=== PATIENT | female | born 1940 | race Caucasian/White ===

== ENCOUNTER → 2017-01-03 | Outpatient (CLI) | payer MEDICARE ==
--- NOTE | 2017-01-03 16:43 | US ---
EXAMINATION TYPE: US thyroid st tissue head/neck DATE OF EXAM: 01/03/2017 COMPARISON: NONE CLINICAL HISTORY: 76-year-old female with E04.1 THYROID NODULE. Pt states h/o nodules and on thyroid meds x many years TECHNIQUE: Multiple sonographic images of the thyroid gland are obtained. FINDINGS: GLAND SIZE: Right Lobe: 4.4 x 1.3 x 1.1 cm Overall Parenchyma: heterogenous Left Lobe: 3.3 x 1.0 x 1.2 cm Overall Parenchyma: heterogeneous Isthmus Thickness: 0.2 cm NODULES RIGHT: # of nodules measured on right: 2 1. 0.6 X 0.7 x 0.7 cm isoechoic solid nodule at the mid pole with well-defined margins; This nodul e is wider than tall and shows intranodular vascularity. Prior size: No prior 2. 0.5 X 0.4 x 0.5 cm hypoechoic mixed nodule at the mid pole with well-defined margins; this nodule is wider than tall and shows no intranodular vascularity. This appears cystic with a central nodule and can be followed. Prior size: No prior LEFT: # of nodules measured on left: 0 ISTHMUS: # of nodules measured in the isthmus: 0 Bilateral neck scanned, no evidence of lymphadenopathy IMPRESSION: 2 subcentimeter nodules within the right lobe. The smaller measures 5 mm and is cystic with a central soft tissue nodule and can be followed.
== END ==
LOC: RADUSWWP 15:34
PROVIDERS: ATTEND Family Medicine
DX: E04.2 Nontoxic multinodular goiter (principal)
CPT/HCPCS: 76536

== ENCOUNTER → 2017-02-04 | Outpatient (CLI) | payer MEDICARE ==
--- NOTE | 2017-02-05 07:28 | US ---
EXAMINATION TYPE: US carotid duplex BILAT DATE OF EXAM: 02/04/2017 COMPARISON: NONE CLINICAL HISTORY: R42 Dizziness, H53.8 Blurred vision. Patient stated had 3 days of dizziness last we ek then had left ear wax removed and stated no episode of dizziness since. EXAM MEASUREMENTS: RIGHT: Peak Systolic Velocity (PSV) cm/sec ----- Right CCA: 68.2 ----- Right ICA: 58.1 ----- Right ECA: 86.4 ICA/CCA ratio: 0.9 RIGHT: End Diastole cm/sec ----- Right CCA: 18.0 ----- Right ICA: 18.0 ----- Right ECA: 13.8 LEFT: Peak Systolic Velocity (PSV) cm/sec ----- Left CCA: 59.0 ----- Left ICA: 59.0 ----- Left ECA: 65.1 ICA/CCA ratio: 1.0 LEFT: End Diastole cm/sec ----- Left CCA: 15.4 ----- Left ICA: 13.6 ----- Left ECA: 11.0 VERTEBRALS (direction of flow): Right Vertebral: Antegrade Left Vertebral: Antegrade Mild intimal wall thickening noted at bilateral carotid bifurcation but PSV is wnl bilaterally. IMPRESSION: No evidence for hemodynamically significant stenosis. Criteria for Assigning % of Stenosis / Diameter reduction (Estimation based on the indirect measurements of the internal carotid artery velocities (ICA PSV). 1. Normal (no stenosis)=ICA PSV < 125 cm/s: ratio < 2.0: ICA EDV<40 cm/s. 2. Less than 50% stenosis=ICA PSV < 125 cm/s: ratio < 2.0: ICA EDV<40 cm/s. 3. 50 to 69% stenosis=ICA PSV of 125 to 230 cm/s: ration 2.0 ? 4.0: ICA EDV 40-100 cm/s. 4. Greater than 70% stenosis to near occlusion= ICA PSV > 230 cm/s: ratio > 4.0: ICA EDV > 100 cm/s. 5. Near occlusion= ICA PSV velocities may be low or undetectable: variable ratio and ICA EDV. 6. Total occlusion=unable to detect flow.
== END | disposition home or self-care (01) ==
LOC: RADUSWWP 15:47
PROVIDERS: ATTEND Family Medicine
DX: R42 Dizziness and giddiness (principal); H53.8 Other visual disturbances
CPT/HCPCS: 93880

== ENCOUNTER 2021-07-17 18:54 | Emergency (ER) | payer MEDICARE ==
[2021-07-17 19:10] VITALS: BP 153/75; PULSE 75; RESP 18; TEMP 98.6
[2021-07-17] MEDS ORDERED: ACETAMINOPHEN TAB 500 MG TAB PO STA (20:49)
--- NOTE | 2021-07-17 21:00 | CT ---
EXAMINATION TYPE: CT brain cspine wo con CT DLP: 1286.2 mGycm, Automated exposure control for dose reduction was used. DATE OF EXAM: 07/17/2021 8:09 PM COMPARISON: None.. CLINICAL INDICATION:Female, 80 years old with history of Fall; head injury; Fall, head injury RT side TECHNIQUE: Brain: Multiple axial CT images of the brain were obtained without IV contrast. Cspine: Axial CT images from the skull base to the inferior aspect of T2 we obtained without intraven ous contrast. Coronal and sagittal reformatted images were also reviewed. FINDINGS: Brain: Extra-axial spaces: No abnormal extra-axial fluid collections. Ventricular system: Within normal limits Cerebral parenchyma: No acute intraparenchymal hemorrhage or mass effect. The avila-white junction is well differentiated. Cerebellum: Unremarkable. Mass effect: No evidence of midline shift. Intracranial vasculature: Atherosclerotic calcifications of the intracranial vessels. Soft tissues: Scalp/subcutaneous hematoma overlying the right frontal bone. Focus of gas within the b lood products likely representing of laceration in this region. Calvarium/osseous structures: No depressed skull fracture. Paranasal sinuses and mastoid air cells: Clear. Visualized orbits: Orbital contents are intact. Cervical spine: Fracture: None. Osseous structures: Unremarkable Vertebral alignment: Within normal limits. Spinal canal/Neural Foramina: No evidence of significant spinal canal narrowing. No evidence of signi ficant neural foramina narrowing. Neck soft tissues: Prevertebral soft tissues are within normal limits. Other: The airway is patent. The lung apices are clear. IMPRESSION: 1. No acute intracranial process. 2. Frontal scalp hematoma/edema. 3. No evidence of cervical spine fracture. 4. Moderate multilevel degenerative disc disease.
--- NOTE | 2021-07-17 21:23 | ED ---
Head Injury HPI - General Chief complaint: Head Injury Stated complaint: fall, head injury Time Seen by Provider: 07/17/21 19:42 Source: patient, family Mode of arrival: ambulatory Limitations: no limitations - History of Present Illness Initial comments: 80-year-old female patient presented to the emergency department today for evaluation after experiencing a fall. States that she slipped in her garage and fell forward hitting her forehead on the cement. She denies any loss of consciousness. States that she noticed blood coming from her forehead so became concerned and called her daughter. She does take a baby aspirin daily. She states she does have headache right now in the back of her head. She denies any neck or back pain. Denies any extremity injury. Denies any blurred or double vision. Denies dizziness, nausea, or vomiting. - Related Data Home Medications Medication Instructions Recorded Confirmed Aspirin 81 mg PO HS 07/17/14 07/17/21 Atenolol/Chlorthalidone 1 tab PO DAILY 07/17/14 07/17/21 [Atenolol-Chlorthalidone 50-25] Omeprazole 40 mg PO AC-BRKFST 07/17/14 07/17/21 Potassium Chloride [K-Tab ER] 20 meq PO TID 07/17/14 07/17/21 Ascorbic Acid [Vitamin C] 500 mg PO DAILY 07/17/21 07/17/21 Calcium Carbonate [Calcium] 600 mg PO DAILY 07/17/21 07/17/21 Escitalopram [Lexapro] 10 mg PO DAILY 07/17/21 07/17/21 Fluticasone Nasal [place] [Flonase 2 spray EA NOSTRIL HS 07/17/21 07/17/21 Nasal [place]] Levothyroxine Sodium [Synthroid] 50 mcg PO DAILY 07/17/21 07/17/21 Losartan Potassium 50 mg PO DAILY 07/17/21 07/17/21 Allergies/Adverse reactions: Allergies Allergy/AdvReac Type Severity Reaction Status Date / Time iodine Allergy Itching Verified 07/17/21 20:16 Review of Systems ROS Statement: Those systems with pertinent positive or pertinent negative responses have been documented in the HPI. ROS Other: All systems not noted in ROS Statement are negative. Past Medical History Past Medical History: Hyperlipidemia, Hypertension, Thyroid Disorder History of Any Multi-Drug Resistant Organisms: None Reported Past Surgical History: Appendectomy, Hysterectomy, Orthopedic Surgery, Tonsillectomy Additional Past Surgical History / Comment(s): breast reduction Past Psychological History: No Psychological Hx Reported Smoking Status: Never smoker Past Alcohol Use History: Occasional Past Drug Use History: None Reported General Exam Limitations: no limitations General appearance: alert, in no apparent distress, other (This is a well- developed, well-nourished elderly female patient in no acute distress.) Head exam: Present: other (There is large right frontal hematoma with superficial abrasion.) Eye exam: Present: normal appearance, PERRL, EOMI. Absent: scleral icterus, conjunctival injection, nystagmus, periorbital swelling ENT exam: Present: normal exam, normal oropharynx, mucous membranes moist, TM's normal bilaterally (No hemotympanum) Neck exam: Present: normal inspection, full ROM, other (Nontender, no step-off, no deformity to firm midline palpation of the posterior cervical spine. Full range of motion without pain or limitation.). Absent: tenderness, meningismus, lymphadenopathy Respiratory exam: Present: normal lung sounds bilaterally. Absent: respiratory distress, wheezes, rales, rhonchi, stridor Cardiovascular Exam: Present: regular rate, normal rhythm, normal heart sounds. Absent: systolic murmur, diastolic murmur, rubs, gallop, clicks GI/Abdominal exam: Present: soft, normal bowel sounds. Absent: distended, tenderness, guarding, rebound, rigid Back exam: Present: normal inspection, other (Nontender, no step-off, no deformity to firm midline palpation of the thoracic and lumbar vertebrae. Full range of motion without pain or limitation.). Absent: vertebral tenderness Neurological exam: Present: alert, oriented X3, CN II-XII intact Expanded Speech: Present: fluid speech Cranial nerves: EOM's Intact: Normal, Tongue Deviation: Normal, Nystagmus: Normal Motor strength exam: RUE: 5, LUE: 5, RLE: 5, LLE: 5 Psychiatric exam: Present: normal affect, normal mood Skin exam: Present: warm, dry, intact, normal color. Absent: rash Course Vital Signs 07/17/21 19:05 Temperature 98.6 F Pulse Rate 75 Respiratory 18 Rate Blood Pressure 153/75 O2 Sat by Pulse 92 L Oximetry Medical Decision Making - Medical Decision Making 80-year-old female patient presented to the emergency department for evaluation after experiencing a fall. Physical examination did reveal right forehead hematoma with superficial abrasion. She is neurologically intact with no focal deficits. No spinal tenderness. She does take a baby aspirin. CT brain and C- spine was obtained and was negative for any acute abnormalities. She is instructed to apply ice to the forehead frequently and to keep wound clean. She is instructed to follow-up with her primary care physician for recheck in 1-2 days. Return parameters were discussed in detail. She verbalizes understanding and agrees with this plan. My attending is Dr. Mccauley. - Radiology Data Radiology results: report reviewed, image reviewed CT brain and C-spine is obtained. Report was reviewed in its entirety. Impression by Dr. Niño shows no acute intracranial process. Frontal scalp he matoma/edema. No evidence of cervical spine fracture. Moderate multilevel degenerative disc disease. Disposition Clinical Impression: Traumatic hematoma of forehead, Forehead abrasion Disposition: HOME SELF-CARE Condition: Good Instructions (If sedation given, give patient instructions): Abrasion (ED), Hematoma (ED) Additional Instructions: Continue to apply ice to the forehead. Keep wound clean and dry. Follow-up with the primary care physician for recheck in 1-2 days. Return for any new, worsening, or concerning symptoms. Is patient prescribed a controlled substance at d/c from ED?: No Referrals: Yury Potter DO [Primary Care Provider] - 1-2 days Time of Disposition: 21:23
== END 2021-07-17 21:39 | disposition home or self-care (01) ==
LOC: EC 18:54
DX: S00.83XA Contusion of other part of head, initial encounter (principal); E78.5 Hyperlipidemia, unspecified; I10 Essential (primary) hypertension; Z72.89 Other problems related to lifestyle; W01.0XXA Fall on same level from slipping, tripping and stumbling without subsequent striking against object, initial encounter; Y92.094 Garage of other non-institutional residence as the place of occurrence of the external cause
CPT/HCPCS: 70450; 72125; 99284

== ENCOUNTER → 2022-03-05 | Outpatient (CLI) | payer MEDICARE ==
--- NOTE | 2022-03-05 12:31 | XR ---
EXAMINATION TYPE: XR Hip RT and AP Pelvis DATE OF EXAM: 03/05/2022 12:26 PM INDICATION: Patient age:Female; 81 years old; Reason for study: Z74.09 OTHER REDUCED MOBILITY; COMPARISON: None. TECHNIQUE: The right hip was examined in the frontal and lateral projections and a AP pelvis. FINDINGS: There is joint space narrowing of the right hip joint with osteophyte formation of the femo ral head and the acetabulum. Soft tissues grossly unremarkable. IMPRESSION: 1. Moderate osteoporosis of the right hip. 2. No evidence of fracture.
== END | disposition home or self-care (01) ==
LOC: RADXRMAIN 12:09
PROVIDERS: ATTEND Nurse Practitioner Family
DX: M16.11 Unilateral primary osteoarthritis, right hip (principal); Z74.09 Other reduced mobility
CPT/HCPCS: 73502

== ENCOUNTER 2022-03-13 15:49 | Emergency (ER) | payer MEDICARE ==
[2022-03-13 16:32] VITALS: TEMP 98.3
--- NOTE | 2022-03-13 17:19 | XR ---
EXAMINATION TYPE: XR ankle limited LT DATE OF EXAM: 03/13/2022 5:03 PM INDICATION: Patient age:Female; 81 years old; Reason for study: fall; COMPARISON: None TECHNIQUE: The left ankle is imaged in frontal, lateral projections. FINDINGS: There is no evidence of acute osseous pathology. The joint spaces are well-preserved without evidenc e of subluxation or dislocation. Kager's fat pad is intact. Mild soft tissue swelling around the ankl e. No radiopaque foreign bodies are identified. IMPRESSION: 1. No evidence of acute fracture. 2. Subcutaneous swelling around the ankle likely secondary to underlying soft tissue injury.
--- NOTE | 2022-03-13 17:23 | XR ---
EXAMINATION TYPE: XR ribs bilateral DATE OF EXAM: 03/13/2022 5:03 PM INDICATION: Patient age:Female; 81 years old; Reason for study: fall; PHH. COMPARISON: Chest radiograph 05/30/2011 TECHNIQUE: Frontal and oblique views of the bilateral ribs with frontal chest radiograph. FINDINGS: Fusion osseous demineralization limits evaluation of the osseous structures. The ribs have a normal appearance. No evidence of fracture. Overall, the lungs are clear. The cardiac silhouette is normal in size. The remaining osseous structures are intact. Multilevel disc degeneration changes throughout the spine. IMPRESSION RIBS: No acute osseous pathology.
--- NOTE | 2022-03-13 17:57 | ED ---
General Adult HPI - General Chief complaint: Fall Stated complaint: fall Time Seen by Provider: 03/13/22 17:43 Source: patient, family, RN notes reviewed, old records reviewed - History of Present Illness Initial comments: This is a pleasant well-appearing 81-year-old female who presents with family complaining of falling down 4 steps while trying to carry her cat to a vet appointment. She states she fell forward on carpeted stairs landing on her right side. She also twisted her left ankle. She denies any loss of consciousness. She did not hit her head does not take any blood thinners. She has no neck pain. No broken skin. She was able to ambulate immediately after the fall. -: hour(s) Location: chest (right anterior ribs) Radiation: non-radiation Severity scale (1-10): 7 Quality: constant Consistency: constant Improves with: immobilization Worsens with: movement Associated Symptoms: other (left ankle pain) Treatments Prior to Arrival: cold therapy - Related Data Home Medications Medication Instructions Recorded Confirmed Aspirin 81 mg PO HS 07/17/14 07/17/21 Atenolol/Chlorthalidone 1 tab PO DAILY 07/17/14 07/17/21 [Atenolol-Chlorthalidone 50-25] Omeprazole 40 mg PO AC-BRKFST 07/17/14 07/17/21 Potassium Chloride [K-Tab ER] 20 meq PO TID 07/17/14 07/17/21 Ascorbic Acid [Vitamin C] 500 mg PO DAILY 07/17/21 07/17/21 Calcium Carbonate [Calcium] 600 mg PO DAILY 07/17/21 07/17/21 Escitalopram [Lexapro] 10 mg PO DAILY 07/17/21 07/17/21 Fluticasone Nasal [place] [Flonase 2 spray EA NOSTRIL HS 07/17/21 07/17/21 Nasal [place]] Levothyroxine Sodium [Synthroid] 50 mcg PO DAILY 07/17/21 07/17/21 Losartan Potassium 50 mg PO DAILY 07/17/21 07/17/21 Previous Rx's Medication Instructions Recorded Lidocaine 5% Patch [Lidoderm] 1 patch TOPICAL DAILY PRN #14 patch 03/13/22 Allergies Allergy/AdvReac Type Severity Reaction Status Date / Time iodine Allergy Itching Verified 03/13/22 16:32 Review of Systems ROS Statement: Those systems with pertinent positive or pertinent negative responses have been documented in the HPI. ROS Other: All systems not noted in ROS Statement are negative. Past Medical History Past Medical History: Hyperlipidemia, Hypertension, Thyroid Disorder History of Any Multi-Drug Resistant Organisms: None Reported Past Surgical History: Appendectomy, Hysterectomy, Orthopedic Surgery, Tonsillectomy Additional Past Surgical History / Comment(s): breast reduction Past Psychological History: No Psychological Hx Reported Smoking Status: Never smoker Past Alcohol Use History: Occasional Past Drug Use History: None Reported General Exam General appearance: alert, in no apparent distress Head exam: Present: atraumatic, normocephalic, normal inspection Eye exam: Present: normal appearance. Absent: scleral icterus, conjunctival injection, periorbital swelling ENT exam: Present: normal oropharynx, mucous membranes moist Neck exam: Present: normal inspection, full ROM. Absent: tenderness, meningismus Respiratory exam: Present: normal lung sounds bilaterally. Absent: respiratory distress, wheezes, rales, rhonchi, stridor, chest wall tenderness, accessory muscle use Cardiovascular Exam: Present: regular rate GI/Abdominal exam: Present: soft. Absent: distended, tenderness, guarding, rebound, rigid Extremities exam: Present: full ROM, normal capillary refill. Absent: pedal edema, joint swelling, calf tenderness Left Knee exam: Present: full ROM. Absent: tenderness Lower Leg exam: Present: full ROM. Absent: tenderness, swelling Ankle exam: Present: full ROM, tenderness (Lateral malleolus), swelling. Absent: abrasion, laceration, ecchymosis, deformity, crepitus, dislocation, erythema Foot/Toe exam: Present: full ROM. Absent: tenderness, swelling, ecchymosis, calcaneal tenderness, tenderness at base of 5th metatarsal Neurovascular tendon exam: Present: no vascular compromise. Absent: abnormal cap refill, extremity cold to touch, pallor, foot drop, significant pain with passive ROM of distal joint Gait: observed and normal Back exam: Present: normal inspection, full ROM. Absent: tenderness, CVA tenderness (R), CVA tenderness (L), rash noted Neurological exam: Present: alert, oriented X3 Psychiatric exam: Present: normal affect, normal mood. Absent: anxious Skin exam: Present: warm, dry, normal color. Absent: cyanosis, diaphoretic, petechiae, pallor Course Vital Signs 03/13/22 03/13/22 16:29 18:23 Temperature 98.3 F Pulse Rate 63 65 Respiratory 16 18 Rate Blood Pressure 133/70 167/87 O2 Sat by Pulse 95 99 Oximetry Medical Decision Making - Medical Decision Making X-ray of the right hip and pelvis shows no evidence of fracture, moderate osteoporosis of the right hip, osteophyte formation of the femoral head and acetabulum. X-ray of left ankle shows no evidence of acute fracture. Subcutaneous swelling on the ankle secondary to underlying soft tissue injury. Chest x-ray shows osseous structures intact. Multilevel disc degeneration throughout the spine. No acute fracture of the ribs. Vital signs are stable. Lungs sounds are clear to auscultation. She is able to ambulate with a steady gait. On physical exam there is bruising to the right anterior ribs. Lidoderm was provided along with Motrin. She was directed to increase her fluid intake take Tylenol and/or Motrin as needed for pain along with Lidoderm patches for rib pain. She was given an ankle stirrup for likely ankle sprain. I did discuss the importance of taking deep breaths and coughing to prevent pneumonia. She was encouraged to follow-up with her doctor this week for reevaluation of her injuries and return to the emergency room with any new or concerning symptoms. Patient and family are agreeable to this plan of care. Case discussed with Dr. Danielle Disposition Clinical Impression: Fall Disposition: HOME SELF-CARE Condition: Good Instructions (If sedation given, give patient instructions): Ankle Sprain (ED), Fall Prevention for Older Adults (ED), Musculoskeletal Pain (ED), Rib Contusion (ED) Additional Instructions: Take Tylenol and or Motrin as needed for pain. Use Lidoderm patches to ribs for pain relief. Take deep breaths and cough at least every hour to prevent pneumonia. Increase your fluid intake. Follow-up with the primary care doctor this week. Return to the emergency room with any new or concerning symptoms. Prescriptions: Lidocaine 5% Patch [Lidoderm] 1 patch TOPICAL DAILY PRN #14 patch PRN Reason: Pain Is patient prescribed a controlled substance at d/c from ED?: No Referrals: Yury Potter DO [Primary Care Provider] - 1-2 days Time of Disposition: 18:02
[2022-03-13] MEDS ORDERED: IBUPROFEN 400 MG TAB PO STA (17:58)
[2022-03-13] MEDS ORDERED: LIDOCAINE 5% PATCH TOPICAL SCH (18:00)
[2022-03-13 18:25] VITALS: BP 167/87; PULSE 65; RESP 18
== END 2022-03-13 18:25 | disposition home or self-care (01) ==
LOC: EC 15:49
DX: M25.572 Pain in left ankle and joints of left foot (principal); E78.5 Hyperlipidemia, unspecified; I10 Essential (primary) hypertension; E07.9 Disorder of thyroid, unspecified; Z91.041 Radiographic dye allergy status; Z79.82 Long term (current) use of aspirin; Z79.899 Other long term (current) drug therapy; W10.9XXA Fall (on) (from) unspecified stairs and steps, initial encounter
CPT/HCPCS: 71110; 99284

== ENCOUNTER 2023-07-01 11:32 | Emergency (ER) | payer MEDICARE ==
[2023-07-01 11:56] VITALS: PULSE 60; RESP 18
--- NOTE | 2023-07-01 12:08 | ED ---
Fall HPI - General Chief Complaint: Fall Stated Complaint: fall-hip pain Time Seen by Provider: 07/01/23 12:03 Source: patient, RN notes reviewed Mode of arrival: wheelchair Limitations: no limitations - History of Present Illness Initial Comments: This is an 82 year old female who presents to the emergency department for left hip pain after a fall. States that earlier today she was going down the stairs when she missed the last step and fell, landing on her left side. Denies hitting her head. She did scrape her left elbow and has some mild generalized soreness, but that has started to improve and her hip is now the most bothersome area. Denies hitting her head. She has not been able to put pressure on the leg since the fall. MD Complaint: fall - Related Data Home Medications Medication Instructions Recorded Confirmed Aspirin 81 mg PO HS 07/17/14 07/17/21 Atenolol/Chlorthalidone 1 tab PO DAILY 07/17/14 07/17/21 [Atenolol-Chlorthalidone 50-25] Omeprazole 40 mg PO AC-BRKFST 07/17/14 07/17/21 Potassium Chloride [K-Tab ER] 20 meq PO TID 07/17/14 07/17/21 Ascorbic Acid [Vitamin C] 500 mg PO DAILY 07/17/21 07/17/21 Calcium Carbonate [Calcium] 600 mg PO DAILY 07/17/21 07/17/21 Escitalopram [Lexapro] 10 mg PO DAILY 07/17/21 07/17/21 Fluticasone Nasal [place] [Flonase 2 spray EA NOSTRIL HS 07/17/21 07/17/21 Nasal [place]] Levothyroxine Sodium [Synthroid] 50 mcg PO DAILY 07/17/21 07/17/21 Losartan Potassium 50 mg PO DAILY 07/17/21 07/17/21 Previous Rx's Medication Instructions Recorded Lidocaine 5% Patch [Lidoderm] 1 patch TOPICAL DAILY PRN #14 patch 03/13/22 Acetaminophen-Codeine 300-30mg 1 tab PO Q6H PRN 3 Days #12 tablet 07/01/23 [Tylenol w/codeine #3] Ibuprofen 600 mg PO Q8H PRN #30 tab 07/01/23 Allergies Allergy/AdvReac Type Severity Reaction Status Date / Time iodine Allergy Itching Verified 07/01/23 11:54 Review of Systems ROS Statement: Those systems with pertinent positive or pertinent negative responses have been documented in the HPI. ROS Other: All systems not noted in ROS Statement are negative. Past Medical History Past Medical History: Hyperlipidemia, Hypertension, Thyroid Disorder History of Any Multi-Drug Resistant Organisms: None Reported Past Surgical History: Appendectomy, Hysterectomy, Orthopedic Surgery, Tonsillectomy Additional Past Surgical History / Comment(s): breast reduction Past Psychological History: No Psychological Hx Reported Smoking Status: Never smoker Past Alcohol Use History: Occasional Past Drug Use History: None Reported General Exam - General Exam Comments Initial Comments: Visual Physical Exam Vital signs reviewed General: Well-appearing, nontoxic, no acute distress. Head: Normocephalic, atraumatic Eyes: PERRLA, EOMI ENT: Airway patent Chest: Nonlabored breathing Skin: No visual rash, normal skin tone Neuro: Alert and oriented 3 Musculoskeletal: No gross abnormalities Limitations: no limitations General appearance: alert, in no apparent distress Head exam: Present: atraumatic, normocephalic, normal inspection Respiratory exam: Present: normal lung sounds bilaterally. Absent: respiratory distress, wheezes, rales, rhonchi, stridor Cardiovascular Exam: Present: regular rate, normal rhythm, normal heart sounds. Absent: systolic murmur, diastolic murmur, rubs, gallop, clicks Extremities exam: Present: other (Tenderness to palpation in the left groin/medial hip. ROM limited by pain. No overlying deformities. ) Neurological exam: Present: alert, oriented X3, CN II-XII intact Psychiatric exam: Present: normal affect, normal mood Skin exam: Present: warm, dry, intact, normal color. Absent: rash Course Vital Signs 07/01/23 07/01/23 07/01/23 11:51 13:50 16:28 Temperature 98.7 F 98.5 F Pulse Rate 60 60 60 Respiratory 18 18 18 Rate Blood Pressure 145/64 188/81 179/92 O2 Sat by Pulse 96 95 95 Oximetry Medical Decision Making - Medical Decision Making I performed the QuickNote portion of this chart. Signed Kimberly Forbes PA-C. This is an 82-year-old female who presents to the emergency department for left hip pain after fall. Was pt. sent in by a medical professional or institution? @ -No Did you speak to anyone other than the patient for history? @ -No Did you review nursing and triage notes? @ -Yes, and I agree, it is accurate with regards to the patient's symptoms. Were old charts reviewed? @ -No Differential Diagnosis? @ -Differential Musculoskeletal: Muscular strain, contusion, ligament sprain, fracture, arthritis, septic arthritis, bursitis, cellulitis, muscle spasm, nerve compression, DVT, arterial occlusion, herpes zoster, electrolyte abnormality, tumor.... This is not meant to be in all inclusive list EKG interpreted by me (3pts min.)? @ -Not obtained X-rays interpreted by me (1pt min.)? @ -X-ray of the left hip and AP pelvis obtained. My interpretation identifies a left pubic rami fracture. CT interpreted by me (1pt min.)? @ -CT scan of the left hip obtained. My interpretation identifies a pubic rami fracture and no femoral fracture. U/S interpreted by me (1pt. min.)? @ -Not obtained What testing was considered but not performed? (CT, X-rays, U/S, labs)? Why? @ -None What meds were considered but not given? Why? @ -None Did you discuss the management of the patient with other professionals? @ -Yes, Tutu Suarez PA-C, with [facility], who advised that if the patient is able to ambulate, she can be discharged home to bear weight as tolerated and follow up in the office. Did you reconcile home meds? @ -No Was smoking cessation discussed for >3mins.? @ -No Was critical care preformed (if so, how long)? @ -No Were there social determinants of health that impacted care today? How? (Homelessness, low income, unemployed, alcoholism, drug addiction, transportation, low edu. Level, literacy, decrease access to med. care, [facility], rehab)? @ -No Was there de-escalation of care discussed even if they declined? (Discuss DNR or withdrawal of care, Hospice)? @ -No What co-morbidities impacted this encounter? (DM, HTN, Smoking, COPD, CAD, Cancer, CVA, Hep., AIDS, mental health diagnosis, sleep apnea, morbid obesity)? @ -None Was patient admitted / discharged? @ -Discharged. X-ray of the left hip obtained demonstrating some cortical irregularity along the left pubic body and medial aspect of the left superior pubic ramus. They advised correlation for possible fracture. Computed tomog narayan scan of the left hip was subsequently obtained. This identified a mildly comminuted fracture of the medial aspect of the left superior pubic ramus with fracture extending into the left pubic body. There is also an adjacent nondisplaced fracture to the left inferior pubic ramus. No evidence of a femoral fracture was identified. We did then obtain an x-ray of the AP pelvis, and no additional pelvic fracture was identified. Toradol administered for pain relief and the patient was able to ambulate afterwards. Given that the fracture extended into the pubic body, case was discussed with orthopedics. They advised that because she is able to ambulate, she can be discharged home to ambulate as tolerated. Prescription for ibuprofen and Tylenol #3 provided with dosing instructions reviewed. Advised using a walker for the meantime and contacting orthopedics tomorrow morning for a follow-up appointment. Patient discharged home in stable condition. Undiagnosed new problem with uncertain prognosis? @ -None Drug Therapy requiring intensive monitoring for toxicity (Heparin, Nitro, Insulin, Cardizem)? @ -None Were any procedures done? @ -None Diagnosis/symptom? @ -Fall, pubic rami fracture Acute, or Chronic, or Acute on Chronic? @ -Acute Uncomplicated (without systemic symptoms) or Complicated (systemic symptoms)? @ -Uncomplicated Side effects of treatment? @ -None Exacerbation, Progression, or Severe Exacerbation] @ -Not applicable Poses a threat to life or bodily function? @ -This will limit her ability to ambulate for the mean time. Return precautions reviewed in depth, the patient is instructed to return to the emergency department with any new, worsening, or concerning symptoms. Patient verbalized understanding. This case was discussed in detail with the attending ED physician, Dr. Giles. Presentation, findings, and treatment plan discussed in detail as well. - Radiology Data Radiology results: report reviewed, image reviewed Disposition Clinical Impression: Fall, Fracture of left pubis Disposition: HOME SELF-CARE Instructions (If sedation given, give patient instructions): Pelvic Fracture (ED), Fall Prevention for Older Adults (ED), Pelvic Pain in Women (ED) Additional Instructions: Return to the emergency department with any new, worsening, or concerning symptoms. Alternate with ibuprofen and Tylenol as needed for pain relief. You can take the Tylenol #3 when your pain is the most severe. Contact orthopedics as listed below for a follow-up appointment. Try to use your walker to get around for the meantime. Prescriptions: Ibuprofen 600 mg PO Q8H PRN #30 tab PRN Reason: Pain Acetaminophen-Codeine 300-30mg [Tylenol w/codeine #3] 1 tab PO Q6H PRN 3 Days #12 tablet PRN Reason: Pain Is patient prescribed a controlled substance at d/c from ED?: Yes When asked, does pt state using other controlled substances?: No If prescribed controlled substance>3 days was MAPS reviewed?: Prescribed <3 Days Referrals: Yury Potter DO [Primary Care Provider] - 1-2 days Oliver Wood DO [Doctor of Osteopathic Medicine] - 1-2 days Time of Disposition: 15:59
[2023-07-01] MEDS ORDERED: KETOROLAC 15 MG/ML 1 ML VIAL IVP STA (13:08)
[2023-07-01] MEDS ORDERED: MORPHINE SULFATE 2 MG/ML SYRINGE IVP STA (13:08)
--- NOTE | 2023-07-01 13:31 | XR ---
EXAMINATION TYPE: XR Hip Complete LT DATE OF EXAM: 07/01/2023 COMPARISON: 03/05/2022 HISTORY: 82-year-old female patient with recent fall, persistent right hip pain. Z74.09 OTHER REDUCE D MOBILITY TECHNIQUE: 2 views FINDINGS: Mild axial joint space narrowing of the left hip with mild marginal spurring. There is osteopenia. T here is some cortical irregularity along the pubic body in medial aspect of the left superior pubic r amus not as well appreciated on the patient's prior 2021 exam. No displaced fracture seen. IMPRESSION: 1. Some cortical irregularity along the left pubic body and medial aspect of the left superior pubic ramus. Unclear if this represents superimposition shadow or subtle nondisplaced pubic bone fracture. Correlate for point tenderness. 2. Otherwise, no displaced hip fracture identified.
--- NOTE | 2023-07-01 14:51 | CT ---
EXAMINATION TYPE: CT hip LT wo con DATE OF EXAM: 07/01/2023 COMPARISON: Radiograph same day HISTORY: 82-year-old female left hip pain after fall, possible fracture on x-ray TECHNIQUE: Contiguous axial scanning of the left hip without IV contrast. Coronal and sagittal recons tructions performed. 3-D reconstructions generated on a dedicated independent workstation. CT DLP: 301.7 mGycm Automated exposure control for dose reduction was used. FINDINGS: There is mild extraperitoneal hemorrhage laterally and anteriorly within the pelvis. Poorly defined, mild intramuscular hemorrhage left operators internus. There is an oblique fracture involving the medial aspect of the left superior pubic ramus and fractur e line extending into the pubic body. A subtle cortical irregularity along the inferior pubic ramus i s suspected to represent a subtle nondisplaced fracture here as well, axial image 40 and 41. Mild to moderate degenerative change left hip. Uterus surgically absent. IMPRESSION: 1. CT CONFIRMS A MILDLY COMMINUTED FRACTURE MEDIAL ASPECT OF THE LEFT SUPERIOR PUBIC RAMUS WITH FRACT URE EXTENDING INTO THE LEFT PUBIC BODY. ADDITIONAL NONDISPLACED FRACTURE LEFT INFERIOR PUBIC RAMUS. 2. SOME ADJACENT MILD EXTRAPERITONEAL HEMORRHAGE WITHIN THE LATERAL AND ANTERIOR ASPECT OF THE PELVIS . BRUISING OF THE LEFT OBTURATOR INTERNUS MUSCLE. 3. [id number] LEFT HIP OA.
--- NOTE | 2023-07-01 15:39 | XR ---
EXAMINATION TYPE: XR pelvis AP view DATE OF EXAM: 07/01/2023 Comparison: CT same day Clinical History: 82-year-old female Eval full pelvis, fracture on CT Findings: Mild to moderate degenerative change in both hips. Redemonstrated mildly comminuted, nondisplaced fra cture medial left superior pubic ramus and left pubic body. Nondisplaced fracture left inferior pubic ramus is not well demonstrated radiographically. SI joints appear symmetric and intact. No additiona l acute fracture seen. Impression: 1. Redemonstrated nondisplaced fractures of the left pubic bone. No additional acute osseous abnormal ity seen. 2. 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
[2023-07-01 16:46] VITALS: BP 179/92; TEMP 98.5
== END 2023-07-01 16:37 | disposition home or self-care (01) ==
LOC: EC 11:32
DX: S32.502A Unspecified fracture of left pubis, initial encounter for closed fracture (principal); E07.9 Disorder of thyroid, unspecified; I10 Essential (primary) hypertension; Z79.82 Long term (current) use of aspirin; Z79.890 Hormone replacement therapy; Z79.899 Other long term (current) drug therapy; W10.9XXA Fall (on) (from) unspecified stairs and steps, initial encounter
CPT/HCPCS: 99284 ×2; 96374 ×2; 72170; 73502; 73700; J1885